=== PATIENT | female | born 1960 | race Caucasian/White ===

== ENCOUNTER → 2017-04-14 | Outpatient (REF) | payer MEDICARE ==
[~2017-04-14] MED LIST: /IPRAINH INH; ACET65TA OR; ALBUTEROL INH; ALDA25TA2 OR; ASPI81TA3 OR; LASI20TA OR; LISI5TAB OR; LOPR50TA OR; NICORETTE PO; POTA20TA OR; POTA20TA2 OR; TOPR50TA OR; ZEST10TA OR; ZITH500T OR
[2017-04-14 18:07] LABS: MEAN CORPUSCULAR HEMOGLOBIN 32.6 pg (27.0-33.0); MEAN CORPUSCULAR HGB CONC 34.8 g/dl (32.0-36.5); MEAN CORPUSCULAR VOLUME 93.7 fl (80.0-96.0); PLATELET COUNT, AUTOMATED 204 10^3/uL (150-450); RED CELL DISTRIBUTION WIDTH 12.7 % (11.5-14.5); WHITE BLOOD COUNT 6.7 10^3/uL (4.0-10.0)
[2017-04-14 18:28] LABS: ALBUMIN 4.1 GM/DL (3.2-5.2); ALBUMIN/GLOBULIN RATIO 1.28 (1.00-1.93); BILIRUBIN,TOTAL 0.4 MG/DL (0.2-1.0); CALCIUM LEVEL 9.3 MG/DL (8.5-10.1); CREATININE FOR GFR 1.05 MG/DL (0.55-1.02); GLOMERULAR FILTRATION RATE 57.7 (>51); POTASSIUM SERUM 4.3 MEQ/L (3.5-5.1); TOTAL PROTEIN 7.3 GM/DL (6.4-8.2)
== END ==
LOC: M SFHCCLAY 11:13
PROVIDERS: ATTEND Nurse Practitioner Family
DX: J44.9 Chronic obstructive pulmonary disease, unspecified (principal); I11.0 Hypertensive heart disease with heart failure; I50.9 Heart failure, unspecified; E78.5 Hyperlipidemia, unspecified; Z13.21 Encounter for screening for nutritional disorder; M54.9 Dorsalgia, unspecified; M41.9 Scoliosis, unspecified; G89.29 Other chronic pain; E55.9 Vitamin D deficiency, unspecified; Z23 Encounter for immunization; Z79.899 Other long term (current) drug therapy; Z79.82 Long term (current) use of aspirin
CPT/HCPCS: 80053; 80061; 82306; 85027; 90670; 90686; 94010; G0008; G0009; G0463

== ENCOUNTER → 2017-08-04 | Outpatient (CLI) | payer MEDICARE | LOC: M SMT 11:14 | DX: J44.9 Chronic obstructive pulmonary disease, unspecified (principal) | CPT/HCPCS: 71046 ==

== ENCOUNTER → 2018-11-15 | Outpatient (REF) | payer MEDICARE ==
[~2018-11-15] MED LIST changes: -/IPRAINH INH; +ATRO0.063 INH; +METO-743 OR; -TOPR50TA OR
[2018-11-15 12:14] LABS: HEMATOCRIT 47.1 % (36.0-47.0); HEMOGLOBIN 15.8 g/dl (12.0-15.5); MEAN CORPUSCULAR HEMOGLOBIN 32.5 pg (27.0-33.0); MEAN CORPUSCULAR HGB CONC 33.5 g/dl (32.0-36.5); MEAN CORPUSCULAR VOLUME 96.9 fl (80.0-96.0); PLATELET COUNT, AUTOMATED 218 10^3/uL (150-450); RED BLOOD COUNT 4.86 10^6/uL (4.00-5.40); WHITE BLOOD COUNT 12.7 10^3/uL (4.0-10.0)
[2018-11-15 12:34] LABS: ALBUMIN 3.7 GM/DL (3.2-5.2); BILIRUBIN,TOTAL 0.4 MG/DL (0.2-1.0); CALCIUM LEVEL 8.9 MG/DL (8.5-10.1); CHOLESTEROL RISK RATIO 1.987 (<5); CREATININE FOR GFR 1.25 MG/DL (0.55-1.30); FREE T4 1.09 NG/DL (0.76-1.46); GLOMERULAR FILTRATION RATE 46.9 (>51); POTASSIUM SERUM 3.9 MEQ/L (3.5-5.1); THYROID STIMULATING HORMONE 0.749 uIU/ML (0.358-3.740)
== END ==
LOC: M LABDRAWC 11:11
PROVIDERS: ATTEND Internal Medicine Cardiovascular Disease
DX: R06.02 Shortness of breath (principal); I10 Essential (primary) hypertension; E78.5 Hyperlipidemia, unspecified; I42.5 Other restrictive cardiomyopathy
CPT/HCPCS: 80053; 80061; 84439; 84443; 85027; G0463

== ENCOUNTER 2019-02-20 18:26 | Inpatient (IN) | payer MEDICARE, MEDICAID ==
[~2019-02-20] VITALS: Ht 160 cm; Wt 43.5 kg
[2019-02-20] MEDS ORDERED: IPRATROPIUM 0.5MG/ALBUTEROL 2.5MG INH SOL UD 3ML (DUONEB)(J7620) NEB ONE (18:45)
[2019-02-20] MEDS ORDERED: ALBUTEROL SULFATE 2.5 MG/0.5 ML INH NEB SOLN INH ONE (18:45)
[2019-02-20 18:53] LABS: BASO % 0.4 % (0.0-1.0); EOS % 0.4 % (0.0-3.0); HEMATOCRIT 42.1 % (36.0-47.0); LYMPH # 0.6 10^3/uL (1.5-5.0); LYMPH % 6.8 % (24.0-44.0); MEAN CORPUSCULAR HEMOGLOBIN 32.8 pg (27.0-33.0); MEAN CORPUSCULAR HGB CONC 35.6 g/dl (32.0-36.5); MEAN CORPUSCULAR VOLUME 91.9 fl (80.0-96.0); MONO # 0.7 10^3/uL (0.0-0.8); MONO % 7.3 % (0.0-5.0); NEUTROPHILS % 84.9 % (36.0-66.0); PLATELET COUNT, AUTOMATED 157 10^3/uL (150-450); RED BLOOD COUNT 4.58 10^6/uL (4.00-5.40); WHITE BLOOD COUNT 9.5 10^3/uL (4.0-10.0)
[2019-02-20 18:54] LABS: ABG BASE EXCESS 0.9 (-2.0-2.0); ABG HCO3 23.5 MEQ/L (22.0-26.0); ABG O2 SATURATION 95.8 % (95.0-99.0); ABG PARTIAL PRESSURE CO2 31.9 mmHg (35.0-45.0); ABG PARTIAL PRESSURE O2 70.1 mmHg (75.0-100.0); ABG STANDARD HCO3 25.3 MEQ/L (22.0-26.0); ABG TOTAL CO2 24.5 MEQ/L (22.0-29.0); ABG pH (ARTERIAL) 7.485 UNITS (7.350-7.450)
[2019-02-20 19:04] LABS: INR 1.09; PROTHROMBIN TIME 13.8 SECONDS (11.8-14.0)
[2019-02-20] MEDS ORDERED: CALC-333 PO (19:21)
[2019-02-20] MEDS ORDERED: CLOP75TA2 PO (19:21)
[2019-02-20] MEDS ORDERED: ALBU83IN INH (19:21)
[2019-02-20] MEDS ORDERED: PROAAER10 INH (19:21)
[2019-02-20] MEDS ORDERED: SPIR-10 PO (19:21)
[2019-02-20] MEDS ORDERED: PRAV20TA2 (19:21)
[2019-02-20] MEDS ORDERED: ASPI81CH33 PO (19:21)
[2019-02-20] MEDS ORDERED: FLUT11IN INH (19:21)
[2019-02-20] MEDS ORDERED: LISI-538 PO (19:21)
[2019-02-20] MEDS ORDERED: AMLO10TA5 (19:21)
--- NOTE | 2019-02-20 19:27 | REP ---
REASON: Dyspnea. COMPARISON: Multiple, the latest 08/04/2017 The technique utilized in obtaining the radiograph has magnified the cardiac silhouette and accentuated the interstitial markings. The lung dill are hyperexpanded status quo. The heart is not enlarged. No acute patchy parenchymal opacities or pleural effusions have developed. The osseous structures are within normal limits and unchanged. IMPRESSION:No acute cardiopulmonary disease. Electronically Signed by Benja Crowder DO 02/20/2019 07:47 P
[2019-02-20 19:32] LABS: ALBUMIN 3.9 GM/DL (3.2-5.2); ALT/SGPT 14 U/L (12-78); BILIRUBIN,DIRECT 0.2 MG/DL (0.0-0.2); BILIRUBIN,TOTAL 0.5 MG/DL (0.2-1.0); BLOOD UREA NITROGEN 9 MG/DL (7-18); CALCIUM LEVEL 9.2 MG/DL (8.5-10.1); CARBON DIOXIDE LEVEL 26 MEQ/L (21-32); CHLORIDE LEVEL 99 MEQ/L (98-107); CK-MB VALUE MASS 1.8 NG/ML (<3.6); CPK CREATINE PHOSPHOKINASE 71 U/L (26-192); CREATININE FOR GFR 0.92 MG/DL (0.55-1.30); GLOMERULAR FILTRATION RATE > 60.0 (>51); GLUCOSE, FASTING 107 MG/DL (70-100); MB/CK RELATIVE INDEX 2.54 (< OR =4); NT-PRO BNP 190 PG/ML (<125); POTASSIUM SERUM 4.1 MEQ/L (3.5-5.1); SODIUM LEVEL 134 MEQ/L (136-145); THYROXINE (T4) 11.3 UG/DL (4.5-12.0); TOTAL PROTEIN 6.9 GM/DL (6.4-8.2); TROPONIN I < 0.02 NG/ML (< 0.10)
[2019-02-20] MEDS ORDERED: PRAV40TA2 PO (21:06)
[2019-02-20] MEDS ORDERED: AMLO5TAB6 PO (21:06)
[2019-02-20] MEDS ORDERED: METO1TAB7 PO (21:06)
[2019-02-20] MEDS ORDERED: CALCD50TA PO (21:06)
[2019-02-20] MEDS ORDERED: QC A650T3 PO (21:06)
[2019-02-20] MEDS ORDERED: ANOR1AER INH (21:07)
[2019-02-20] MEDS ORDERED: MAALOX 30 ML SUSP *UDC PO PRN (21:15)
[2019-02-20] MEDS ORDERED: MOM 30ML SUSPENSION UDC PO PRN (21:15)
[2019-02-20] MEDS ORDERED: ACETAMINOPHEN TAB 650MG DOSE (2X325MG) PO PRN (21:15)
[2019-02-20] MEDS ORDERED: IPRATROPIUM 0.5MG/ALBUTEROL 2.5MG INH SOL UD 3ML (DUONEB)(J7620) NEB PRN (21:30)
[2019-02-20 23:05] VITALS: BP 114/65
--- NOTE | 2019-02-20 23:05 | HPEPDOC ---
General Date of Admission Feb 20, 2019 at 18:27 Date of Service: Feb 20, 2019 Chief Complaint The patient is a 58-year-old female admitted with a reason for visit of Rhinovirus. Source: Patient Exam Limitations: No limitations Severity: Moderate History of Present Illness Ms. Tolbert is a 58 years old smoker with COPD who reports flu-like symptoms for two days: runny nose, cough, SOB, chest tightness, fatigue, weakness and chills. She was brought to ER by EMS for evaluation of severe respiratory distress. She received Nebs and Decadrone IV en route. When I saw the pt in the ER, she had improved a lot. She still felt tight chest, but was breathing comfortably. Lung sounds were decreased globally. She had mild sinus tachycardia 110/min and mild tachypnea. CBC, BMP and ABG are fine. Rhinovirus PCR is +. CXR normal. Home Medications Scheduled Amlodipine Besylate (Amlodipine Besylate) 5 Mg Tablet, 2.5 MG PO DAILY, (Reported) Aspirin (Aspirin) 81 Mg Tab.chew, 81 MG PO DAILY, (Reported) Calcium/Vitamin D (Calcium 500-Vit D3 200 Tablet) 1 Each Tablet, 1 TAB PO DAILY, (Reported) Clopidogrel Bisulfate (Clopidogrel) 75 Mg Tablet, 75 MG PO DAILY, (Reported) Fluticasone Propionate (Flovent Hfa) 110 Mcg/Act Aer.w.adap, 1 PUFF INH BID, (Reported) Lisinopril (Lisinopril) 20 Mg Tablet, 20 MG PO DAILY, (Reported) Metoprolol Succinate (Metoprolol Succinate) 50 Mg Tab.er.24h, 50 MG PO DAILY, (Reported) Pravastatin Sodium (Pravastatin Sodium) 40 Mg Tablet, 40 MG PO DAILY, (Reported) Spironolactone (Spironolactone) 25 Mg Tablet, 25 MG PO DAILY, (Reported) Umeclidinium Brm/Vilanterol Tr (Anoro Ellipta 62.5-25 Mcg INH) 1 Each Blst.w.dev, 1 PUFF INH DAILY, (Reported) Scheduled PRN Acetaminophen (Acetaminophen 8 Hour) 650 Mg Tablet.er, 650 MG PO TID PRN for PAIN, (Reported) Albuterol Sulf (Albuterol Sulfate) 2.5 Mg/3 Ml Vial.neb, 1 VIAL INH QID PRN for SOB/WHEEZING, (Reported) Albuterol Sulfate (Proair Hfa) 8.5 Gm Hfa.aer.ad, 2 PUFF INH QID PRN for SHORTNESS OF BREATH, (Reported) Allergies Coded Allergies: No Known Allergies (Unverified , 02/20/19) Past Medical History Medical History COPD, HTN, CAD Surgical History Tubal ligation Family History Significant Family History: Other (daughter with developmental disorder) Social History * Smoker: current smoker Alcohol: Denies Drugs: denies A-FIB/CHADSVASC A-FIB History Current/History of A-Fib/PAF?: No Review of Systems Constitutional: Reports: Chills, Malaise, Weakness, Fatigue; Denies: Fever Eyes: Denies: Pain ENT: Reports: Head Aches Skin: Denies: Rash, Lesions Pulmonary: Reports: Dyspnea, Cough Cardiovascular: Denies: Chest Pain, Palpitations Gastrointestinal: Denies: Nausea, Vomiting Genitourinary: Denies: Dysuria, Frequency Hematologic: Denies: Bruising Endocrine: Denies: Polydipsia, Polyphagia Musculoskeletal: Denies: Neck Pain, Back Pain Neurological: Reports: Weakness; Denies: Numbness, Change in speech, Confusion Psych: Reports: Mood Normal; Denies: Anxiety, Depression Physical Examination General Exam: Positive: Alert, Cooperative, No Acute Distress Eye Exam: Positive: PERRLA, Conjunctiva & lids normal ENT Exam: Positive: Atraumatic Neck Exam: Positive: Supple, JVD Chest Exam: Positive: Clear to auscultation, Diminished (globally) Heart Exam: Positive: Tachycardic, Regular Rhythm Abdomen Exam: Positive: Normal bowel sounds, Soft; Negative: Tenderness Extremity Exam: Positive: Normal pulses; Negative: Edema Skin Exam: Positive: Nl turgor and temperature; Negative: Rash, Breakdown Neuro Exam: Positive: Normal Speech, Strength at 5/5 X4 ext, Normal Tone Psych Exam: Positive: Mental status NL, Mood NL; Negative: Anxiety Vital Signs Vital Signs Date Time Temp Pulse Resp B/P (MAP) Pulse Ox O2 Delivery O2 Flow Rate FiO2 02/20/19 22:26 86 96 02/20/19 20:45 130/64 (86) 02/20/19 18:58 33 02/20/19 18:38 96.4 Room Air Laboratory Data Labs 24H Laboratory Tests 2 02/20/19 18:38: POC Glucose (Misc Panel) 114H, POC Sodium (Misc Panel) 133L, POC Potassium (Misc Panel) 4.0, POC Chloride (Misc Panel) 96L, POC Total CO2 (Misc Panel) 24.0, POC Blood Urea Nitrogen (Misc Panel 8, POC Ionized Calcium (Misc Panel) 4.6, POC Creatinine (Misc Panel) 1.0, POC Hematocrit (Misc Panel) 45.0 02/20/19 18:40: Immature Granulocyte % (Auto) 0.2, White Blood Count 9.5, Red Blood Count 4.58, Hemoglobin 15.0, Hematocrit 42.1, Mean Corpuscular Volume 91.9, Mean Corpuscular Hemoglobin 32.8, Mean Corpuscular Hemoglobin Concent 35.6, Red Cell Distribution Width 12.7, Platelet Count 157, Neutrophils (%) (Auto) 84.9H, Lymphocytes (%) (Auto) 6.8L, Monocytes (%) (Auto) 7.3H, Eosinophils (%) (Auto) 0.4, Basophils (%) (Auto) 0.4, Neutrophils # (Auto) 8.0, Lymphocytes # (Auto) 0.6L, Monocytes # (Auto) 0.7, Eosinophils # (Auto) 0.0, Basophils # (Auto) 0.0, Nucleated Red Blood Cells % (auto) 0.0, Prothrombin Time 13.8, Prothromb Time International Ratio 1.09, Blood Gas Bicarbonate Standard 25.3, Arterial Blood pH 7.485H, Arterial Blood Partial Pressure CO2 31.9L, Arterial Blood Partial Pressure O2 70.1L, Arterial Blood Total CO2 24.5, Arterial Blood HCO3 23.5, Arterial Blood Base Excess 0.9, Arterial Blood Oxygen Saturation 95.8, Anion Gap 9, Glomerular Filtration Rate > 60.0, Lactic Acid Level 2.0, Calcium Level 9.2, Aspartate Amino Transf (AST/SGOT) 15, Alanine Aminotransferase (ALT/SGPT) 14, Alkaline Phosphatase 77, Total Bilirubin 0.5, Direct Bilirubin 0.2, Total Creatine Kinase 71, Creatine Kinase MB 1.8, Creatine Kinase MB Relative Index 2.54, Troponin I < 0.02, RV-Mjx-G-Type Natriuretic Peptide 190H, Total Protein 6.9, Albumin 3.9, Albumin/Globulin Ratio 1.30, Thyroid Stimulating Hormone (TSH) 2.210, Thyroxine (T4) 11.3 CBC/BMP Laboratory Tests 02/20/19 18:40 Red Blood Count 4.58, Mean Corpuscular Volume 91.9, Mean Corpuscular Hemoglobin 32.8, Mean Corpuscular Hemoglobin Concent 35.6, Red Cell Distribution Width 12.7, Neutrophils (%) (Auto) 84.9 H, Lymphocytes (%) (Auto) 6.8 L, Monocytes (%) (Auto) 7.3 H, Eosinophils (%) (Auto) 0.4, Basophils (%) (Auto) 0.4, Neutrophils # (Auto) 8.0, Lymphocytes # (Auto) 0.6 L, Monocytes # (Auto) 0.7, Eosinophils # (Auto) 0.0, Basophils # (Auto) 0.0 Microbiology Microbiology 02/20/19 Blood Culture, Received Pending 02/20/19 Gram Stain, Received Pending 02/20/19 Sputum Culture, Received Pending 02/20/19 Respiratory Virus Panel (PCR) ([facility]) - Final, Complete Human Rhinovirus/Enterovirus Assessment/Plan Upper Respiratory Infection due to Rhinovirus, ?COPD exacerbation - Keep in observation; Tele for tachycardia - Nebs, IV steroid, supportive care - Continue home meds for other chronic conditions Plan / VTE VTE Prophylaxis Ordered?: No VTE Exclusion Mechanical Proph: Low Risk for VTE VTE Exclusion Pharmacological: At Low Risk for VTE Plan IVF: Continue Diet: Continue Current Activity: Continue Current Anticipated Discharge: Home JONATHAN BLANTON MD Feb 20, 2019 23:05
[2019-02-20] MEDS: methylPREDNISolone INJ 125 MG/2 ML VIAL (J2930) IV SCH (23:25)
[2019-02-21] MEDS: IPRATROPIUM 0.5MG/ALBUTEROL 2.5MG INH SOL UD 3ML (DUONEB)(J7620) NEB SCH ×6 (04:00→19:33)
[2019-02-21 06:00] VITALS: BP 114/70
[2019-02-21 06:04] LABS: HEMATOCRIT 38.7 % (36.0-47.0); HEMOGLOBIN 13.7 g/dl (12.0-15.5); MEAN CORPUSCULAR HEMOGLOBIN 33.3 pg (27.0-33.0); MEAN CORPUSCULAR HGB CONC 35.4 g/dl (32.0-36.5); MEAN CORPUSCULAR VOLUME 94.2 fl (80.0-96.0); PLATELET COUNT, AUTOMATED 161 10^3/uL (150-450); RED BLOOD COUNT 4.11 10^6/uL (4.00-5.40); WHITE BLOOD COUNT 4.6 10^3/uL (4.0-10.0)
[2019-02-21] MEDS: methylPREDNISolone INJ 125 MG/2 ML VIAL (J2930) IV SCH ×3 (06:18→21:04)
[2019-02-21 06:31] LABS: CALCIUM LEVEL 9.1 MG/DL (8.5-10.1); CREATININE FOR GFR 1.07 MG/DL (0.55-1.30); GLOMERULAR FILTRATION RATE 56.1 (>51)
[2019-02-21] MEDS: ASPIRIN 81 MG ENTERIC TAB PO SCH (08:22)
[2019-02-21] MEDS: NICOTINE 14 MG/24 HR TRANSDERMAL TD SCH (08:22)
[2019-02-21] MEDS: PRAVASTATIN 20 MG TAB PO SCH (08:22)
[2019-02-21] MEDS: CLOPIDOGREL 75 MG TAB PO SCH (08:22)
[2019-02-21] MEDS: SPIRONOLACTONE 25 MG TAB PO SCH (08:22)
[2019-02-21] MEDS: METOPROLOL SUCC (TopROL XL) 50MG **XL** TAB PO SCH (08:23)
[2019-02-21] MEDS ORDERED: LISINOPRIL 20 MG TAB PO SCH (09:00)
--- NOTE | 2019-02-21 09:15 | IPNPDOC ---
Subjective Date Seen The patient was seen on 02/21/19. Subjective Chief Complaint/HPI Patient reports continued cough and SOB Constitutional: Denies: Chills, Fever Pulmonary: Reports: Dyspnea, Cough; Denies: Pleuritic Chest Pain Cardiovascular: Denies: Chest Pain, Orthopnea, Edema Gastrointestinal: Denies: Nausea, Vomiting, Abdominal Pain Psych: Reports: Mood Normal Objective Physical Examination General Exam: Positive: Alert, Cooperative, No Acute Distress Eye Exam: Positive: PERRLA, Conjunctiva & lids normal ENT Exam: Positive: Atraumatic Neck Exam: Positive: Supple; Negative: JVD Chest Exam: Positive: Wheezing, Diminished (globally); Negative: Rales, Rhonchi Heart Exam: Positive: Rate Normal, Regular Rhythm Abdomen Exam: Positive: Normal bowel sounds, Soft; Negative: Tenderness Extremity Exam: Positive: Normal pulses; Negative: Edema Neuro Exam: Positive: Normal Speech Psych Exam: Positive: Mental status NL, Mood NL; Negative: Anxiety Assessment /Plan Problems (1) COPD with exacerbation Status: Acute Response to Treatment: Stable Problem Text: 02/21/19: Solumedrol 60mg IV q 8 hours. Nebs scheduled q 4 hours. O2 2L via nasal cannula. BC pending. Sputum culture ordered Chest X-ray: Negative (2) Rhinovirus Status: Acute Response to Treatment: Stable Problem Text: 02/21/19: As above (3) Hypertension Status: Chronic Response to Treatment: Stable Problem Text: 02/21/19: Pressures stable on current regimen Plan/VTE VTE Prophylaxis Ordered?: No VTE Exclusion Mechanical Proph: Low Risk for VTE VTE Exclusion Pharmacological: At Low Risk for VTE Plan IVF: Continue Diet: Continue Current Activity: Continue Current Anticipated Discharge: Home VS, I&O, 24H, [facility] Vital Signs/I&O Vital Signs Date Time Temp Pulse Resp B/P (MAP) Pulse Ox O2 Delivery O2 Flow Rate FiO2 02/21/19 08:23 85 119/62 02/21/19 07:17 Nasal Cannula 2.0 02/21/19 06:00 97.9 20 96 I&O- Last 24 Hours up to 6 AM 02/21/19 06:00 Intake Total 600 ml Output Total 400 ml Balance 200 ml Laboratory Data 24H LABS Laboratory Tests 2 02/20/19 18:38: POC Glucose (Misc Panel) 114H, POC Sodium (Misc Panel) 133L, POC Potassium (Misc Panel) 4.0, POC Chloride (Misc Panel) 96L, POC Total CO2 (Misc Panel) 24.0, POC Blood Urea Nitrogen (Misc Panel 8, POC Ionized Calcium (Misc Panel) 4.6, POC Creatinine (Misc Panel) 1.0, POC Hematocrit (Misc Panel) 45.0 02/20/19 18:40: Immature Granulocyte % (Auto) 0.2, White Blood Count 9.5, Red Blood Count 4.58, Hemoglobin 15.0, Hematocrit 42.1, Mean Corpuscular Volume 91.9, Mean Corpuscular Hemoglobin 32.8, Mean Corpuscular Hemoglobin Concent 35.6, Red Cell Distribution Width 12.7, Platelet Count 157, Neutrophils (%) (Auto) 84.9H, Lymphocytes (%) (Auto) 6.8L, Monocytes (%) (Auto) 7.3H, Eosinophils (%) (Auto) 0.4, Basophils (%) (Auto) 0.4, Neutrophils # (Auto) 8.0, Lymphocytes # (Auto) 0.6L, Monocytes # (Auto) 0.7, Eosinophils # (Auto) 0.0, Basophils # (Auto) 0.0, Nucleated Red Blood Cells % (auto) 0.0, Prothrombin Time 13.8, Prothromb Time International Ratio 1.09, Blood Gas Bicarbonate Standard 25.3, Arterial Blood pH 7.485H, Arterial Blood Partial Pressure CO2 31.9L, Arterial Blood Partial Pressure O2 70.1L, Arterial Blood Total CO2 24.5, Arterial Blood HCO3 23.5, Arterial Blood Base Excess 0.9, Arterial Blood Oxygen Saturation 95.8, Anion Gap 9, Glomerular Filtration Rate > 60.0, Lactic Acid Level 2.0, Calcium Level 9.2, Aspartate Amino Transf (AST/SGOT) 15, Alanine Aminotransferase (ALT/SGPT) 14, Alkaline Phosphatase 77, Total Bilirubin 0.5, Direct Bilirubin 0.2, Total Creatine Kinase 71, Creatine Kinase MB 1.8, Creatine Kinase MB Relative Index 2.54, Troponin I < 0.02, VB-Tep-O-Type Natriuretic Peptide 190H, Total Protein 6.9, Albumin 3.9, Albumin/Globulin Ratio 1.30, Thyroid Stimulating Hormone (TSH) 2.210, Thyroxine (T4) 11.3 02/21/19 05:16: Nucleated Red Blood Cells % (auto) 0.0, Anion Gap 11, Glomerular Filtration Rate 56.1, Calcium Level 9.1, Blood Urea Nitrogen 11, Creatinine 1.07, Sodium Level 135L, Potassium Level 4.0, Chloride Level 100, Carbon Dioxide Level 24 CBC/BMP Laboratory Tests 02/20/19 18:40 Red Blood Count 4.58, Mean Corpuscular Volume 91.9, Mean Corpuscular Hemoglobin 32.8, Mean Corpuscular Hemoglobin Concent 35.6, Red Cell Distribution Width 12.7, Neutrophils (%) (Auto) 84.9 H, Lymphocytes (%) (Auto) 6.8 L, Monocytes (%) (Auto) 7.3 H, Eosinophils (%) (Auto) 0.4, Basophils (%) (Auto) 0.4, Neutrophils # (Auto) 8.0, Lymphocytes # (Auto) 0.6 L, Monocytes # (Auto) 0.7, Eosinophils # (Auto) 0.0, Basophils # (Auto) 0.0 02/21/19 05:16 Red Blood Count 4.11, Mean Corpuscular Volume 94.2, Mean Corpuscular Hemoglobin 33.3 H, Mean Corpuscular Hemoglobin Concent 35.4, Red Cell Distribution Width 12.6, Calcium Level 9.1 Microbiology Microbiology 02/20/19 Blood Culture, Received Pending 02/20/19 Gram Stain, Received Pending 02/20/19 Sputum Culture, Received Pending 02/20/19 Respiratory Virus Panel (PCR) ([facility]) - Final, Complete Human Rhinovirus/Enterovirus HARSHIL MCMAHANP Feb 21, 2019 09:15
[2019-02-21 14:30] VITALS: BP 95/57
[2019-02-21] MEDS ORDERED: ALBUTEROL SULFATE 2.5 MG/0.5 ML INH NEB SOLN NEB ONE (14:45)
[2019-02-21] MEDS ORDERED: ALBUTEROL SULFATE 2.5 MG/0.5 ML INH NEB SOLN NEB PRN (14:45)
[2019-02-21 16:20] VITALS: BP 130/65
--- NOTE | 2019-02-21 21:32 | ECGEPIP ---
[facility] - ED Test Date: 2019-02-20 Pat Name: SYEDA MCKENZIE Department: Room: [place] [address] Gender: Female [employer]: TIM : 1960 Requested By: ROBBIE Armijo Order Number: [id number] Reading MD: Katelyn Meléndez Measurements Intervals [place] Rate: 105 P: 85 MO: 154 QRS: 70 QRSD: 74 T: 85 QT: 293 QTc: 388 Interpretive Statements SINUS TACHYCARDIA RIGHT ATRIAL ENLARGEMENT POSSIBLE LEFT ATRIAL ENLARGEMENT MODERATE T-WAVE ABNORMALITY, CONSIDER ISCHEMIA NO PRIOR Electronically Signed on 02-21-2019 21:32:28 EDT by Katelyn Meléndez
[2019-02-21 22:00] VITALS: BP 97/55
[2019-02-22] MEDS: IPRATROPIUM 0.5MG/ALBUTEROL 2.5MG INH SOL UD 3ML (DUONEB)(J7620) NEB SCH ×7 (03:40→23:49)
[2019-02-22] MEDS: methylPREDNISolone INJ 125 MG/2 ML VIAL (J2930) IV SCH ×3 (05:44→21:57)
[2019-02-22 06:00] VITALS: BP 98/58
[2019-02-22 06:08] LABS: BASO % 0.1 % (0.0-1.0); HEMATOCRIT 36.5 % (36.0-47.0); HEMOGLOBIN 12.8 g/dl (12.0-15.5); LYMPH # 0.5 10^3/uL (1.5-5.0); LYMPH % 3.1 % (24.0-44.0); MEAN CORPUSCULAR HEMOGLOBIN 33.5 pg (27.0-33.0); MEAN CORPUSCULAR HGB CONC 35.1 g/dl (32.0-36.5); MEAN CORPUSCULAR VOLUME 95.5 fl (80.0-96.0); MONO # 0.8 10^3/uL (0.0-0.8); MONO % 4.9 % (0.0-5.0); NEUTROPHILS # 14.8 10^3/uL (1.5-8.5); NEUTROPHILS % 90.6 % (36.0-66.0); PLATELET COUNT, AUTOMATED 180 10^3/uL (150-450); RED BLOOD COUNT 3.82 10^6/uL (4.00-5.40); WHITE BLOOD COUNT 16.3 10^3/uL (4.0-10.0)
[2019-02-22 06:43] LABS: CALCIUM LEVEL 8.9 MG/DL (8.5-10.1); CREATININE FOR GFR 1.1 MG/DL (0.55-1.30); GLOMERULAR FILTRATION RATE 54.3 (>51); POTASSIUM SERUM 3.7 MEQ/L (3.5-5.1)
[2019-02-22] MEDS: ASPIRIN 81 MG ENTERIC TAB PO SCH (08:32)
[2019-02-22] MEDS: PRAVASTATIN 20 MG TAB PO SCH (08:33)
[2019-02-22] MEDS: SPIRONOLACTONE 25 MG TAB PO SCH (08:33)
[2019-02-22] MEDS: CLOPIDOGREL 75 MG TAB PO SCH (08:33)
[2019-02-22] MEDS: NICOTINE 14 MG/24 HR TRANSDERMAL TD SCH (08:34)
[2019-02-22] MEDS: LISINOPRIL 10 MG TAB PO SCH (09:00)
[2019-02-22] MEDS: METOPROLOL SUCC (TopROL XL) 50MG **XL** TAB PO SCH (09:00)
--- NOTE | 2019-02-22 10:00 | IPNPDOC ---
Subjective Date Seen The patient was seen on 02/22/19. Subjective Chief Complaint/HPI Patient continues to report feeling SOB. She requires 2L O2 Constitutional: Denies: Chills, Fever Pulmonary: Reports: Dyspnea, Cough; Denies: Pleuritic Chest Pain Cardiovascular: Denies: Chest Pain, Palpitations, Orthopnea, Edema Gastrointestinal: Denies: Nausea, Vomiting Psych: Reports: Mood Normal Objective Physical Examination General Exam: Positive: Alert, Cooperative, No Acute Distress Eye Exam: Positive: PERRLA, Conjunctiva & lids normal ENT Exam: Positive: Atraumatic Neck Exam: Positive: Supple; Negative: JVD Chest Exam: Positive: Wheezing, Diminished (globally); Negative: Rales, Rhonchi Heart Exam: Positive: Rate Normal, Regular Rhythm Abdomen Exam: Positive: Normal bowel sounds, Soft; Negative: Tenderness Extremity Exam: Positive: Normal pulses; Negative: Edema Neuro Exam: Positive: Normal Speech Psych Exam: Positive: Mental status NL, Mood NL; Negative: Anxiety Assessment /Plan Problems (1) COPD with exacerbation Status: Acute Response to Treatment: Stable Problem Text: 02/22/19: Sputum culture positive for Citrobacter. Start Levaquin IV until her breathing has improved and then we can transition her to oral. Continue with IV Solumedrol, nebs and O2 02/21/19: Solumedrol 60mg IV q 8 hours. Nebs scheduled q 4 hours. O2 2L via nasal cannula. BC pending. Sputum culture ordered Chest X-ray: Negative (2) Citrobacter infection Status: Acute Response to Treatment: Stable Problem Text: 02/22/19: Start Levaquin as stated above (3) Rhinovirus Status: Acute Response to Treatment: Stable Problem Text: 02/21/19: As above (4) Hypertension Status: Chronic Response to Treatment: Stable Problem Text: 02/22/19: Pressures soft this morning. Lisinopril and Metoprolol were held. Lisinopril dose reduced to 10mg po q day 02/21/19: Pressures stable on current regimen Plan/VTE VTE Prophylaxis Ordered?: No VTE Exclusion Mechanical Proph: Low Risk for VTE VTE Exclusion Pharmacological: At Low Risk for VTE Plan IVF: Continue Diet: Continue Current Activity: Continue Current Anticipated Discharge: Home VS, I&O, 24H, Fishbone Vital Signs/I&O Vital Signs Date Time Temp Pulse Resp B/P (MAP) Pulse Ox O2 Delivery O2 Flow Rate FiO2 02/22/19 09:00 86/54 02/22/19 09:00 89 02/22/19 06:00 97.2 18 94 2.0 02/21/19 07:17 Nasal Cannula I&O- Last 24 Hours up to 6 AM 02/22/19 05:59 Intake Total 1797 ml Output Total 1300 ml Balance 497 ml Laboratory Data 24H LABS Laboratory Tests 2 02/22/19 05:08: Immature Granulocyte % (Auto) 1.3, White Blood Count 16.3H, Red Blood Count 3.82L, Hemoglobin 12.8, Hematocrit 36.5, Mean Corpuscular Volume 95.5, Mean Corpuscular Hemoglobin 33.5H, Mean Corpuscular Hemoglobin Concent 35.1, Red Cell Distribution Width 12.9, Platelet Count 180, Neutrophils (%) (Auto) 90.6H, Lymph ocytes (%) (Auto) 3.1L, Monocytes (%) (Auto) 4.9, Eosinophils (%) (Auto) 0.0, Basophils (%) (Auto) 0.1, Neutrophils # (Auto) 14.8H, Lymphocytes # (Auto) 0.5L, Monocytes # (Auto) 0.8, Eosinophils # (Auto) 0.0, Basophils # (Auto) 0.0, Nucleated Red Blood Cells % (auto) 0.0, Anion Gap 9, Glomerular Filtration Rate 54.3, Blood Urea Nitrogen 20#H, Creatinine 1.10, Sodium Level 136, Potassium Level 3.7, Chloride Level 100, Carbon Dioxide Level 27, Calcium Level 8.9 CBC/BMP Laboratory Tests 02/22/19 05:08 Red Blood Count 3.82 L, Mean Corpuscular Volume 95.5, Mean Corpuscular Hem oglobin 33.5 H, Mean Corpuscular Hemoglobin Concent 35.1, Red Cell Distribution Width 12.9, Neutrophils (%) (Auto) 90.6 H, Lymphocytes (%) (Auto) 3.1 L, Monocytes (%) (Auto) 4.9, Eosinophils (%) (Auto) 0.0, Basophils (%) (Auto) 0.1, Neutrophils # (Auto) 14.8 H, Lymphocytes # (Auto) 0.5 L, Monocytes # (Auto) 0.8, Eosinophils # (Auto) 0.0, Basophils # (Auto) 0.0, Calcium Level 8.9 Microbiology Microbiology 02/20/19 Blood Culture - Preliminary, Resulted No growth after 24 hours . All specim... 02/20/19 Gram Stain - Final, Resulted 02/20/19 Sputum Culture - Preliminary, Resulted Citrobacter Freundii 02/20/19 Respiratory Virus Panel (PCR) ([facility]) - Final, Complete Human Rhinovirus/Enterovirus HARSHIL MCMAHAN [employer] Feb 22, 2019 10:00
[2019-02-22] MEDS ORDERED: LevoFLOXacin IV 500 MG in APPROPRIATE DILUENT 1 EA IV ONE (11:00)
[2019-02-22 14:00] VITALS: BP 100/57
[2019-02-22] MEDS ORDERED: NS 500 ML IV ONE (21:30)
[2019-02-22 22:00] VITALS: BP 98/50
[2019-02-22 23:00] VITALS: BP 98/52
[2019-02-23] MEDS: IPRATROPIUM 0.5MG/ALBUTEROL 2.5MG INH SOL UD 3ML (DUONEB)(J7620) NEB SCH ×6 (04:00→22:40)
[2019-02-23] MEDS: methylPREDNISolone INJ 125 MG/2 ML VIAL (J2930) IV SCH ×3 (05:20→21:10)
[2019-02-23 06:00] VITALS: BP 108/62
[2019-02-23 06:21] LABS: BASO % 0.1 % (0.0-1.0); HEMATOCRIT 37.1 % (36.0-47.0); HEMOGLOBIN 12.9 g/dl (12.0-15.5); LYMPH # 0.4 10^3/uL (1.5-5.0); LYMPH % 3.2 % (24.0-44.0); MEAN CORPUSCULAR HEMOGLOBIN 33.9 pg (27.0-33.0); MEAN CORPUSCULAR HGB CONC 34.8 g/dl (32.0-36.5); MEAN CORPUSCULAR VOLUME 97.6 fl (80.0-96.0); MONO # 0.4 10^3/uL (0.0-0.8); NEUTROPHILS # 11.8 10^3/uL (1.5-8.5); NEUTROPHILS % 91.9 % (36.0-66.0); PLATELET COUNT, AUTOMATED 179 10^3/uL (150-450); WHITE BLOOD COUNT 12.9 10^3/uL (4.0-10.0)
[2019-02-23 06:42] LABS: BLOOD UREA NITROGEN 17 MG/DL (7-18); CALCIUM LEVEL 8.8 MG/DL (8.5-10.1); CARBON DIOXIDE LEVEL 26 MEQ/L (21-32); CHLORIDE LEVEL 105 MEQ/L (98-107); CREATININE FOR GFR 0.92 MG/DL (0.55-1.30); GLOMERULAR FILTRATION RATE > 60.0 (>51); GLUCOSE, FASTING 111 MG/DL (70-100); POTASSIUM SERUM 4.4 MEQ/L (3.5-5.1); SODIUM LEVEL 139 MEQ/L (136-145)
[2019-02-23] MEDS: ENOXAPARIN 40 MG/0.4 ML SYRINGE (J1650) SC SCH (09:00)
[2019-02-23] MEDS: NICOTINE 14 MG/24 HR TRANSDERMAL TD SCH (10:01)
[2019-02-23] MEDS: SPIRONOLACTONE 25 MG TAB PO SCH (10:02)
[2019-02-23] MEDS: METOPROLOL SUCC (TopROL XL) 50MG **XL** TAB PO SCH (10:02)
[2019-02-23 10:03] VITALS: BP 104/52
[2019-02-23] MEDS: PRAVASTATIN 20 MG TAB PO SCH (10:03)
[2019-02-23] MEDS: ASPIRIN 81 MG ENTERIC TAB PO SCH (10:03)
[2019-02-23] MEDS: LISINOPRIL 10 MG TAB PO SCH (10:03)
[2019-02-23] MEDS: CLOPIDOGREL 75 MG TAB PO SCH (10:04)
[2019-02-23] MEDS ORDERED: LevoFLOXacin IV 250 MG in APPROPRIATE DILUENT 1 EA IV SCH (11:00)
[2019-02-23 14:00] VITALS: BP 100/59
--- NOTE | 2019-02-23 14:20 | IPNPDOC ---
Subjective Date Seen The patient was seen on 02/23/19. Subjective Chief Complaint/HPI Ms. Upton reports she still has a dry cough. She would like to try to go home tomorrow but knows she needs to move around more. She reports she has oxygen at home if needed. She states she doesn't always use it. General: Reports: Normal Appetite Constitutional: Reports: Weakness; Denies: Chills, Fever Pulmonary: Reports: Dyspnea, Cough Cardiovascular: Denies: Chest Pain, Palpitations Genitourinary: Denies: Dysuria Psych: Reports: Mood Normal Objective Physical Examination General Exam: Positive: Alert, Cooperative, No Acute Distress (sitting up in bed watching television when I entered the room) Eye Exam: Positive: PERRLA, Conjunctiva & lids normal ENT Exam: Positive: Atraumatic Neck Exam: Positive: Supple; Negative: Lymphadenopathy Chest Exam: Positive: Wheezing (predominantly expiratory), Diminished (globally); Negative: Normal air movement (prolonged expiratory phase), Rales, Rhonchi Heart Exam: Positive: Rate Normal, Regular Rhythm Abdomen Exam: Positive: Normal bowel sounds, Soft; Negative: Tenderness Extremity Exam: Positive: Normal pulses; Negative: Edema Neuro Exam: Positive: Normal Speech Psych Exam: Positive: Mental status NL, Mood NL; Negative: Anxiety Assessment /Plan Problems (1) COPD with exacerbation Status: Acute Response to Treatment: Stable Problem Text: 02/23/19: She received a dose of IV Levaquin today, but I would anticipate her starting oral tomorrow. I'll also start oral prednisone tomorrow. 02/22/19: Sputum culture positive for Citrobacter. Start Levaquin IV until her breathing has improved and then we can transition her to oral. Continue with IV Solumedrol, nebs and O2 02/21/19: Solumedrol 60mg IV q 8 hours. Nebs scheduled q 4 hours. O2 2L via nasal cannula. BC pending. Sputum culture ordered Chest X-ray: Negative (2) Citrobacter infection Status: Acute Response to Treatment: Stable Problem Text: 02/22/19: Start Levaquin as stated above (3) Rhinovirus Status: Acute Response to Treatment: Stable Problem Text: 02/21/19: As above (4) Hypertension Status: Chronic Response to Treatment: Stable Problem Text: 02/23/19: Her blood pressures are relatively low, I think it may be reasonable to hold at least one of her blood pressure medications on discharge. We'll make this final decision tomorrow. 02/22/19: Pressures soft this morning. Lisinopril and Metoprolol were held. Lisinopril dose reduced to 10mg po q day 02/21/19: Pressures stable on current regimen Plan/VTE VTE Prophylaxis Ordered?: Yes (Lovenox) VTE Exclusion Mechanical Proph: Low Risk for VTE VTE Exclusion Pharmacological: N/A:VTE Prophy Ordered Plan Diet: Continue Current Activity: Continue Current Medications: Change to PO Diagnostics: Repeat Labs in AM Anticipated Discharge: Home VS, I&O, 24H, Fishbone Vital Signs/I&O Vital Signs Date Time Temp Pulse Resp B/P (MAP) Pulse Ox O2 Delivery O2 Flow Rate FiO2 02/23/19 10:03 104/52 02/23/19 10:02 92 02/23/19 09:00 2.0 02/23/19 06:00 97.9 17 97 02/22/19 19:40 Nasal Cannula I&O- Last 24 Hours up to 6 AM 02/23/19 06:00 Intake Total 1270 ml Balance 1270 ml Laboratory Data 24H LABS Laboratory Tests 2 02/23/19 05:20: Immature Granulocyte % (Auto) 1.8, White Blood Count 12.9H, Red Blood Count 3.80L, Hemoglobin 12.9, Hematocrit 37.1, Mean Corpuscular Volume 97.6H, Mean Corpuscular Hemoglobin 33.9H, Mean Corpuscular Hemoglobin Concent 34.8, Red Cell Distribution Width 13.2, Platelet Count 179, Neutrophils (%) (Auto) 91.9H, Lymphocytes (%) (Auto) 3.2L, Monocytes (%) (Auto) 3.0, Eosinophils (%) (Auto) 0.0, Basophils (%) (Auto) 0.1, Neutrophils # (Auto) 11.8H, Lymphocytes # (Auto) 0.4L, Monocytes # (Auto) 0.4, Eosinophils # (Auto) 0.0, Basophils # (Auto) 0.0, Nucleated Red Blood Cells % (auto) 0.0, Anion Gap 8, Glomerular Filtration Rate > 60.0, Blood Urea Nitrogen 17, Creatinine 0.92, Sodium Level 139, Potassium Level 4.4, Chloride Level 105, Carbon Dioxide Level 26, Calcium Level 8.8 CBC/BMP Laboratory Tests 02/23/19 05:20 Red Blood Count 3.80 L, Mean Corpuscular Volume 97.6 H, Mean Corpuscular Hemoglobin 33.9 H, Mean Corpuscular Hemoglobin Concent 34.8, Red Cell Distribution Width 13.2, Neutrophils (%) (Auto) 91.9 H, Lymphocytes (%) (Auto) 3.2 L, Monocytes (%) (Auto) 3.0, Eosinophils (%) (Auto) 0.0, Basophils (%) (Auto) 0.1, Neutrophils # (Auto) 11.8 H, Lymphocytes # (Auto) 0.4 L, Monocytes # (Auto) 0.4, Eosinophils # (Auto) 0.0, Basophils # (Auto) 0.0, Calcium Level 8.8 Microbiology Microbiology 02/20/19 Blood Culture - Preliminary, Resulted No Growth after 48 hours. All Specime... 02/20/19 Gram Stain - Final, Complete 02/20/19 Sputum Culture - Final, Complete Citrobacter Freundii 02/20/19 Respiratory Virus Panel (PCR) ([facility]) - Final, Complete Human Rhinovirus/Enterovirus Eladio Flood MD Feb 23, 2019 14:20
[2019-02-23] MEDS: guaiFENesin ER 600 MG TAB PO SCH (21:10)
[2019-02-23 22:00] VITALS: BP 107/57
[2019-02-24] MEDS: IPRATROPIUM 0.5MG/ALBUTEROL 2.5MG INH SOL UD 3ML (DUONEB)(J7620) NEB SCH ×3 (04:04→10:59)
[2019-02-24 06:00] VITALS: BP 116/58
[2019-02-24 06:19] LABS: BASO % 0.1 % (0.0-1.0); HEMATOCRIT 34.1 % (36.0-47.0); HEMOGLOBIN 11.7 g/dl (12.0-15.5); LYMPH # 0.5 10^3/uL (1.5-5.0); MEAN CORPUSCULAR HEMOGLOBIN 33.4 pg (27.0-33.0); MEAN CORPUSCULAR HGB CONC 34.3 g/dl (32.0-36.5); MEAN CORPUSCULAR VOLUME 97.4 fl (80.0-96.0); MONO # 0.5 10^3/uL (0.0-0.8); MONO % 4.7 % (0.0-5.0); NEUTROPHILS # 8.8 10^3/uL (1.5-8.5); NEUTROPHILS % 89.4 % (36.0-66.0); PLATELET COUNT, AUTOMATED 162 10^3/uL (150-450); WHITE BLOOD COUNT 9.9 10^3/uL (4.0-10.0)
[2019-02-24 06:44] LABS: ALT/SGPT 17 U/L (12-78); BLOOD UREA NITROGEN 20 MG/DL (7-18); CALCIUM LEVEL 8.3 MG/DL (8.5-10.1); CARBON DIOXIDE LEVEL 29 MEQ/L (21-32); CHLORIDE LEVEL 105 MEQ/L (98-107); CREATININE FOR GFR 0.97 MG/DL (0.55-1.30); GLOMERULAR FILTRATION RATE > 60.0 (>51); GLUCOSE, FASTING 102 MG/DL (70-100); POTASSIUM SERUM 4.6 MEQ/L (3.5-5.1); SODIUM LEVEL 140 MEQ/L (136-145)
[2019-02-24 06:45] LABS: ALBUMIN 2.8 GM/DL (3.2-5.2); BILIRUBIN,TOTAL 0.3 MG/DL (0.2-1.0); TOTAL PROTEIN 5.4 GM/DL (6.4-8.2)
[2019-02-24] MEDS: PRAVASTATIN 20 MG TAB PO SCH (08:56)
[2019-02-24] MEDS: ASPIRIN 81 MG ENTERIC TAB PO SCH (08:56)
[2019-02-24] MEDS: CLOPIDOGREL 75 MG TAB PO SCH (08:56)
[2019-02-24] MEDS: LISINOPRIL 10 MG TAB PO SCH (08:57)
[2019-02-24] MEDS: SPIRONOLACTONE 25 MG TAB PO SCH (08:57)
[2019-02-24] MEDS: guaiFENesin ER 600 MG TAB PO SCH (08:57)
[2019-02-24] MEDS: METOPROLOL SUCC (TopROL XL) 50MG **XL** TAB PO SCH (08:58)
[2019-02-24] MEDS: NICOTINE 14 MG/24 HR TRANSDERMAL TD SCH (08:58)
[2019-02-24] MEDS: ENOXAPARIN 40 MG/0.4 ML SYRINGE (J1650) SC SCH (08:58)
[2019-02-24] MEDS ORDERED: predniSONE 20 MG TAB PO SCH (09:00)
--- NOTE | 2019-02-24 11:46 | DS.PDOC ---
Discharge Summary General Date of Admission Feb 23, 2019 at 15:41 Discharge Summary PROCEDURES PERFORMED DURING STAY: [None]. ADMITTING DIAGNOSES: 1. . DISCHARGE DIAGNOSES: 1. . COMPLICATIONS/CHIEF COMPLAINT: Rhinovirus. HISTORY OF PRESENT ILLNESS: . HOSPITAL COURSE: . DISCHARGE MEDICATIONS: Please see below. ALLERGIES: Please see below. PHYSICAL EXAMINATION ON DISCHARGE: VITAL SIGNS: Please see below. GENERAL: HEENT: NECK: CARDIOVASCULAR EXAMINATION: RESPIRATORY EXAMINATION: ABDOMINAL EXAMINATION: EXTREMITIES: SKIN: NEUROLOGICAL EXAMINATION: PSYCHIATRIC EXAMINATION: LABORATORY DATA: Please see below. IMAGING: PROGNOSIS: ACTIVITY: [As tolerated]. DIET: DISCHARGE PLAN: DISPOSITION: . DISCHARGE INSTRUCTIONS: 1. . ITEMS TO FOLLOWUP ON ON OUTPATIENT: 1. . DISCHARGE CONDITION: [Stable]. TIME SPENT ON DISCHARGE: Greater than minutes. Vital Signs/I&Os Vital Signs Date Time Temp Pulse Resp B/P (MAP) Pulse Ox O2 Delivery O2 Flow Rate FiO2 02/24/19 08:58 85 02/24/19 06:00 96.4 18 116/58 (77) 96 02/24/19 04:04 Nasal Cannula 2.0 I&O- Last 24 Hours up to 6 AM 02/24/19 05:59 Intake Total 1595 ml Output Total 400 ml Balance 1195 ml Laboratory Data Labs 24H Laboratory Tests 2 02/24/19 05:27: Immature Granulocyte % (Auto) 0.8, White Blood Count 9.9, Red Blood Count 3.50L, Hemoglobin 11.7L, Hematocrit 34.1L, Mean Corpuscular Volume 97.4H, Mean Corpuscular Hemoglobin 33.4H, Mean Corpuscular Hemoglobin Concent 34.3, Red Cell Distribution Width 13.2, Platelet Count 162, Neutrophils (%) (Auto) 89.4H, Lymphocytes (%) (Auto) 5.0L, Monocytes (%) (Auto) 4.7, Eosinophils (%) (Auto) 0.0, Basophils (%) (Auto) 0.1, Neutrophils # (Auto) 8.8H, Lymphocytes # (Auto) 0.5L, Monocytes # (Auto) 0.5, Eosinophils # (Auto) 0.0, Basophils # (Auto) 0.0, Nucleated Red Blood Cells % (auto) 0.0, Anion Gap 6L, Glomerular Filtration Rate > 60.0, Blood Urea Nitrogen 20H, Creatinine 0.97, Sodium Level 140, Potassium Level 4.6, Chloride Level 105, Carbon Dioxide Level 29, Calcium Level 8.3L, Aspartate Amino Transf (AST/SGOT) 9, Alanine Aminotransferase (ALT/SGPT) 17, Alkaline Phosphatase 53, Total Bilirubin 0.3, Total Protein 5.4L, Albumin 2.8L, Albumin/Globulin Ratio 1.08 CBC/BMP Laboratory Tests 02/24/19 05:27 Red Blood Count 3.50 L, Mean Corpuscular Volume 97.4 H, Mean Corpuscular Hemoglobin 33.4 H, Mean Corpuscular Hemoglobin Concent 34.3, Red Cell Distribution Width 13.2, Neutrophils (%) (Auto) 89.4 H, Lymphocytes (%) (Auto) 5.0 L, Monocytes (%) (Auto) 4.7, Eosinophils (%) (Auto) 0.0, Basophils (%) (Auto) 0.1, Neutrophils # (Auto) 8.8 H, Lymphocytes # (Auto) 0.5 L, Monocytes # (Auto) 0.5, Eosinophils # (Auto) 0.0, Basophils # (Auto) 0.0, Calcium Level 8.3 L, Aspartate Amino Transf (AST/SGOT) 9, Alanine Aminotransferase (ALT/SGPT) 17, Alkaline Phosphatase 53, Total Bilirubin 0.3, Total Protein 5.4 L, Albumin 2.8 L Microbiology Microbiology 02/20/19 Blood Culture - Preliminary, Resulted No Growth after 72 hours. All specime... 02/20/19 Gram Stain - Final, Complete 02/20/19 Sputum Culture - Final, Complete Citrobacter Freundii 02/20/19 Respiratory Virus Panel (PCR) ([facility]) - Final, Complete Human Rhinovirus/Enterovirus Discharge Medications Scheduled Amlodipine Besylate (Amlodipine Besylate) 5 Mg Tablet, 2.5 MG PO DAILY, (Reported) Aspirin (Aspirin) 81 Mg Tab.chew, 81 MG PO DAILY, (Reported) Calcium/Vitamin D (Calcium 500-Vit D3 200 Tablet) 1 Each Tablet, 1 TAB PO DAILY, (Reported) Clopidogrel Bisulfate (Clopidogrel) 75 Mg Tablet, 75 MG PO DAILY, (Reported) Fluticasone Propionate (Flovent Hfa) 110 Mcg/Act Aer.w.adap, 1 PUFF INH BID, (Reported) Lisinopril (Lisinopril) 20 Mg Tablet, 20 MG PO DAILY, (Reported) Metoprolol Succinate (Metoprolol Succinate) 50 Mg Tab.er.24h, 50 MG PO DAILY, (Reported) Pravastatin Sodium (Pravastatin Sodium) 40 Mg Tablet, 40 MG PO DAILY, (Reported) Spironolactone (Spironolactone) 25 Mg Tablet, 25 MG PO DAILY, (Reported) Umeclidinium Brm/Vilanterol Tr (Anoro Ellipta 62.5-25 Mcg INH) 1 Each Blst.w.dev, 1 PUFF INH DAILY, (Reported) Scheduled PRN Acetaminophen (Acetaminophen 8 Hour) 650 Mg Tablet.er, 650 MG PO TID PRN for PAIN, (Reported) Albuterol Sulf (Albuterol Sulfate) 2.5 Mg/3 Ml Vial.neb, 1 VIAL INH QID PRN for SOB/WHEEZING, (Reported) Albuterol Sulfate (Proair Hfa) 8.5 Gm Hfa.aer.ad, 2 PUFF INH QID PRN for SHORTNESS OF BREATH, (Reported) Allergies Coded Allergies: No Known Allergies (Unverified , 02/20/19) Eladio Flood MD Feb 24, 2019 11:46
[2019-02-24] MEDS ORDERED: LEVO250T12 PO (11:57)
[2019-02-24] MEDS ORDERED: PRED20TA PO (11:57)
[2019-02-24] MEDS ORDERED: NICO21DI6 TOP (11:59)
[2019-02-24] MEDS ORDERED: LevoFLOXacin 250 MG TABLET PO ONE (12:00)
[2019-02-24] MEDS ORDERED: FLUBLOK(EGG FREE)(QUAD)INFLUENZA VACC 0.5ML SYRINGE (90682)18YRS&OLDER IM ONE (13:00)
== END 2019-02-24 13:58 | disposition home or self-care (01) | DRG 192 ==
LOC: EDBD 18:26 → M ED 18:26 → M ED INP 18:27 → M MSPAV 23:02 → OBSVTOIN 02-23 15:41
PROVIDERS: ADMIT Internal Medicine; ATTEND Family Medicine
DX: J44.1 Chronic obstructive pulmonary disease with (acute) exacerbation (principal); I10 Essential (primary) hypertension; Z79.899 Other long term (current) drug therapy; Z79.82 Long term (current) use of aspirin; F17.200 Nicotine dependence, unspecified, uncomplicated; I25.10 Atherosclerotic heart disease of native coronary artery without angina pectoris; B97.89 Other viral agents as the cause of diseases classified elsewhere

== ENCOUNTER → 2019-03-15 | Outpatient (CLI) | payer MEDICARE, MEDICAID ==
[~2019-03-15] MED LIST changes: +ALBU83IN INH; +AMLO10TA5; +AMLO5TAB6 PO; +ANOR1AER INH; +ASPI81CH33 PO; +CALC-333 PO; +CALCD50TA PO; +CLOP75TA2 PO; +FLUT11IN INH; +LEVO250T12 PO; +LISI-538 PO; +METO1TAB7 PO; +NICO21DI6 TOP; +PRAV20TA2; +PRAV40TA2 PO; +PRED20TA PO; +PROAAER10 INH; +QC A650T3 PO; +SPIR-10 PO
--- NOTE | 2019-03-15 09:15 | REPMRS ---
Patient History The patient states she has not had a clinical breast exam in over a year. Patient is postmenopausal. No known family history of cancer. 3D TOMOSYNTHESIS WAS PERFORMED. The [facility] lifetime risk for breast cancer is 6.0%. Digital Woman Screen Mammo: March 15, 2019 - Exam #: [id number] Bilateral CC and MLO view(s) were taken. Technologist: Joselin Pelayo, Technologist FINDINGS: The breast tissue is heterogeneously dense. This may lower the sensitivity of mammography. There has been no change in the appearance of the mammogram from the prior studies. There is a moderate amount of residual fibroglandular tissue which is fairly symmetric. There is no interval development of dominant mass, areas of architectural distortion, or clustered microcalcification typical of malignancy. Assessment: BI-RADS/ACR category 1 mammogram. Negative Mammogram. Recommendation Routine screening mammogram in 1 year (for women over age 40). This mammogram was interpreted with the aid of an FDA-approved computer-aided dectection system. Electronically Signed By: Michael Muir MD 03/15/19 0914
== END ==
LOC: M WHC 08:12
PROVIDERS: ATTEND Nurse Practitioner Family
DX: Z12.31 Encounter for screening mammogram for malignant neoplasm of breast (principal); Z78.0 Asymptomatic menopausal state

== ENCOUNTER → 2019-04-23 | Outpatient (REF) | LOC: M LAB 09:21 | DX: Z53.9 Procedure and treatment not carried out, unspecified reason (principal) ==